=== PATIENT | male | born 1985 | race Caucasian/White ===

== ENCOUNTER 2022-05-21 11:46 | Emergency (ER) | payer OTHER ==
[~2022-05-21] VITALS: Ht 185.4 cm; Wt 72.6 kg
[~2022-05-21 11:46] MED LIST: MORPHINE SULFAT15 M1 PO
[2022-05-21] MEDS ORDERED: IBUP800 PO (12:47)
[2022-05-21] MEDS ORDERED: HYDR1TAB94 PO (12:47)
== END 2022-05-21 13:02 | disposition home or self-care (01) ==
LOC: ER 11:46
DX: S22.069A Unspecified fracture of T7-T8 vertebra, initial encounter for closed fracture (principal); X58.XXXA Exposure to other specified factors, initial encounter; F17.210 Nicotine dependence, cigarettes, uncomplicated; Z79.899 Other long term (current) drug therapy
CPT/HCPCS: 70450; J1885